=== PATIENT | female | born 1990 | race Caucasian/White ===

== ENCOUNTER → 2017-03-08 | Outpatient (CLI) | payer BC ==
[~2017-03-08] VITALS: Ht 167.6 cm; Wt 94.8 kg
[2017-03-08 15:40] VITALS: BP 143/86; PULSE 96; Ht 167.6 cm; Wt 94.8 kg
== END | disposition home or self-care (01) ==
LOC: C.NEUR 15:15
PROVIDERS: ATTEND Internal Medicine Pulmonary Disease
DX: G47.19 Other hypersomnia (principal)

== ENCOUNTER → 2017-06-11 | Outpatient (CLI) | payer BC ==
[~2017-06-11] MED LIST: GADAVIST IV PRN
--- NOTE | 2017-06-11 16:12 | DIAGNOSTIC IMAGING REPORT ---
Brain MRI WITH AND WITHOUT CONTRAST HISTORY: ELEVATED CORTISOL AND THS LEVELS,SWEATING TECHNIQUE: Multiplanar multisequence MRI of the brain was performed both before and after the intravenous administration of contrast. COMPARISON STUDY: None. FINDINGS: There are no areas of restricted diffusion to suggest acute infarction. The pituitary gland is normal in size. The cerebellar tonsils are positioned up to 4 mm below the level of the foramen magnum. This is consistent with mild cerebellar tonsillar ectopia. Mild mucosal thickening within the ethmoid air cells. The mastoid air cells are clear. The ventricles and sulci are within normal limits for age. There is no mass, hematoma, midline shift. The major vascular flow-voids at the skull base are well maintained. Postcontrast sequences show no areas of abnormal enhancement. IMPRESSION: Mild cerebellar tonsillar ectopia. Otherwise, normal brain MRI. Electronically signed by: Zaid Vora M.D. 06/11/2017 4:10 PM Dictated Date/Time: 06/11/2017 4:02 PM
== END | disposition home or self-care (01) ==
LOC: C.MRI 15:14
PROVIDERS: ATTEND Family Medicine
DX: E27.0 Other adrenocortical overactivity (principal); E03.8 Other specified hypothyroidism; R61 Generalized hyperhidrosis; R00.0 Tachycardia, unspecified; G47.11 Idiopathic hypersomnia with long sleep time